=== PATIENT | female | born 1985 | race Caucasian/White ===

== ENCOUNTER 2017-04-30 14:15 | Emergency (ER) | payer OTHER ==
[2017-04-30 14:23] VITALS: BP 124/74; PULSE 79; TEMP 98.2; BMI 25.0
[2017-04-30] MEDS ORDERED: predniSONE 20 MG TABLET (UD) PO ONE (15:39)
[2017-04-30] MEDS ORDERED: predniSONE 20 MG TABLET (UD) ONE (15:45)
--- NOTE | 2017-04-30 15:45 | PDOC ---
History of Present Illness - General Chief Complaint: Rash Stated Complaint: RASH Time Seen by Provider: 04/30/17 15:12 History Source: Patient Exam Limitations: No Limitations - History of Present Illness Initial Comments: 04/30/17 15:39 31 year old female presents to the the ED with pruritic rash to her abdomen now spreading to her chest and right upper arm. Patient denies recent travel, recent illness, recent change in detergents or foods. Patient also denies recent exposure to bedbugs, scabies or sleeping in the bed other than her own. states history of seafood but denies any seafood ingestion Timing/Duration: reports: yesterday Severity: Yes: mild Location: reports: torso Respiratory Risk Factors: reports: no cause identified Associated Symptoms: reports: rash Past History - Past Medical History Allergies/Adverse Reactions: Allergies Allergy/AdvReac Type Severity Reaction Status Date / Time Fish Containing Products Allergy Intermediate Swelling Verified 04/30/17 14:17 Home Medications: Ambulatory Orders NK [No Known Home Medication] 04/30/17 Anemia: No Asthma: No Cancer: No Cardiac Disorders: No CVA: No COPD: No CHF: No Dementia: No Diabetes: No GI Disorders: Yes (elevated liver enzymes) Disorders: Yes (KIDNEY STONES) HTN: No Hypercholesterolemia: No Kidney Stones: Yes Liver Disease: No Seizures: No Thyroid Disease: No - Surgical History Abdominal Surgery: (JORGE BREAST IMPLANTS) Appendectomy: No Cholecystectomy: No Orthopedic Surgery: No - Reproductive History (#): 1 Para: 1 - Immunization History Immunization Up to Date: Yes - Psycho/Social/Smoking Cessation Hx Anxiety: No Suicidal Ideation: No Smoking History: Never smoked Have you smoked in the past 12 months: No Information on smoking cessation initiated: No Hx Alcohol Use: No Drug/Substance Use Hx: No Substance Use Type: None Hx Substance Use Treatment: No Review of Systems - Review of Systems Able to Perform ROS?: No Is the patient limited Cypriot proficient: No Constitutional: No: Symptoms Reported HEENTM: No: Symptoms Reported Integumentary: Yes: Pruritus, Rash Neurological: No: Symptoms reported *Physical Exam - Vital Signs Last Vital Signs Temp Pulse Resp BP Pulse Ox 98.2 F 79 18 124/74 100 04/30/17 14:19 04/30/17 14:19 04/30/17 14:19 04/30/17 14:19 04/30/17 14:19 - Physical Exam General Appearance: Yes: Nourished, Appropriately Dressed. No: Apparent Distress Gastrointestinal/Abdominal: positive: Soft. negative: Tenderness Integumentary: positive: Rash (scattered mild papular rash to lower abdomen and chest. 3 smallpapules to right forearm.). negative: Hives Neurologic: positive: Motor Strength 5/5 Medical Decision Making - Medical Decision Making 04/30/17 15:44 Patient here for evaluation of pruritic rash 1 week. Patient exam appears to have contact dermatitis of unknown origin. Patient will be given prednisone here and discharged home with the same including Benadryl. The patient if symptoms do not improve over the next 2 days ago consider removing her linens and towels, showing an extreme hot water. *DC/Admit/Observation/Transfer Diagnosis at time of Disposition: Contact dermatitis - Discharge Dispostion Disposition: HOME Condition at time of disposition: Good - Referrals Referrals: Kely Bryan [Primary Care Provider] - - Patient Instructions Printed Discharge Instructions: DI for Contact Dermatitis Additional Instructions: Please take prednisone starting tomorrow since your given your first dose here in the ER. Please take for the next following 3 days. Please also take Benadryl as needed for itching. If no improvement over the next few days please consider washing her clothes, linens and towels in hot water and follow-up with your PCP.
== END 2017-04-30 15:49 | disposition home or self-care (01) ==
LOC: JERFT 14:15
DX: L25.9 Unspecified contact dermatitis, unspecified cause (principal)
CPT/HCPCS: 99281-25